=== PATIENT | female | born 1995 | race Caucasian/White ===

== ENCOUNTER → 2020-07-18 10:24 | Outpatient (BNVA) | payer BC, SELFPAY | PROVIDERS: PCP Hospitalist; Referring Provider Hospitalist; Visit Provider Advanced Practice Midwife | DX: Z76.89 Persons encountering health services in other specified circumstances (principal) ==

== ENCOUNTER 2020-10-07 06:28 | Outpatient (REF) | payer BC, SELFPAY | END 2020-10-07 06:29 | disposition home or self-care (01) | LOC: HO.LAB 06:28 | PROVIDERS: Visit Provider Internal Medicine | DX: Z20.828 Contact with and (suspected) exposure to other viral communicable diseases (principal) | CPT/HCPCS: C9803; U0003 ==

== ENCOUNTER 2021-07-04 07:58 | Outpatient (REF) | payer BC, SELFPAY | END 2021-07-04 07:59 | disposition home or self-care (01) | LOC: HO.LAB 07:58 | PROVIDERS: PCP Hospitalist; Visit Provider Advanced Practice Midwife | DX: Z01.419 Encounter for gynecological examination (general) (routine) without abnormal findings (principal) | CPT/HCPCS: 88142 ==

== ENCOUNTER 2021-11-06 15:04 | Outpatient (REF) | payer BC, SELFPAY ==
[2021-11-07 13:08] LABS: CT PCR NOT DETECTED (Not Detect.); NG PCR NOT DETECTED (Not Detect.)
[2021-11-08 10:57] LABS: BV Int Neg Control Negative (Negative); BV Int Pos Control Positive (Positive)
== END 2021-11-06 15:05 | disposition home or self-care (01) ==
LOC: HO.LAB 15:04
PROVIDERS: Visit Provider Advanced Practice Midwife
DX: Z30.09 Encounter for other general counseling and advice on contraception (principal); B37.3 Candidiasis of vulva and vagina; Z20.2 Contact with and (suspected) exposure to infections with a predominantly sexual mode of transmission; N89.8 Other specified noninflammatory disorders of vagina
CPT/HCPCS: 87480; 87491; 87510; 87591; 87660

== ENCOUNTER 2021-12-04 08:59 | Outpatient (REF) | payer BC, SELFPAY ==
[2021-12-04 10:52] LABS: Hematocrit 38.2 % (37.0-47.0); Hemoglobin 12.7 g/dl (12.0-16.0); Mean Corpuscular HGB Conc 33.2 g/dl (31.0-35.0); Mean Corpuscular Hemoglobin 30.7 pg (27.0-33.0); Mean Corpuscular Volume 92.3 fL (80.0-98.0); Mean Platelet Volume 12.1 fL (9.4-12.3); Platelet Count 260 X10*3/uL (160-400); Red Blood Count 4.14 X10*6/uL (4.20-5.50); Red Cell Distribution Width 12.4 % (11.0-16.0); White Blood Count 6.9 X10*3/uL (4.8-10.8)
[2021-12-04 11:09] LABS: Alanine Aminotransferase 9 U/L (0-31); Albumin Level 4.3 g/dL (3.5-5.0); Alkaline Phosphatase 75 U/L (39-117); Anion Gap 9 (12-20); Aspartate Amino Transferase 16 U/L (5-31); Bilirubin Total 0.5 mg/dL (0.0-1.0); Blood Urea Nitrogen 10 mg/dL (9-16); Calcium 9.8 mg/dL (8.4-10.2); Carbon Dioxide 27 mmol/L (22-29); Chloride 107 mmol/L (96-108); Cholesterol 193 mg/dL; Estimated Glomerular Filt Rate > 60; Glucose Fasting 93 mg/dL (60-99); HDL Cholesterol 47 mg/dL; LDL Cholesterol Calculated 129 mg/dl; Potassium 4.7 mmol/L (3.3-5.1); Sodium 138 mmol/L (135-145); Triglycerides 88 mg/dL
[2021-12-04 11:28] LABS: TSH reflex Free T4 1.46 uIU/mL (0.32-4.0)
== END 2021-12-04 09:00 | disposition home or self-care (01) ==
LOC: HO.WFDLDS 08:59
PROVIDERS: Visit Provider Hospitalist
DX: Z00.00 Encounter for general adult medical examination without abnormal findings (principal)
CPT/HCPCS: 36415; 80053; 80061; 84443; 85027

== ENCOUNTER → 2021-12-15 15:22 | Outpatient (BNVA) | payer BC, SELFPAY | PROVIDERS: PCP Hospitalist; Visit Provider Advanced Practice Midwife ==

== ENCOUNTER 2022-01-13 13:03 | Outpatient (REF) | payer BC, SELFPAY ==
[2022-01-14 09:48] LABS: BV Int Neg Control Negative (Negative); BV Int Pos Control Positive (Positive)
== END 2022-01-13 13:04 | disposition home or self-care (01) ==
LOC: HO.LAB 13:03
PROVIDERS: PCP Hospitalist; Visit Provider Advanced Practice Midwife
DX: R10.2 Pelvic and perineal pain (principal); B37.3 Candidiasis of vulva and vagina
CPT/HCPCS: 87480; 87510; 87660

== ENCOUNTER 2022-07-13 16:16 | Outpatient (REF) | payer BC, SELFPAY ==
--- NOTE | ~2022-07-13 | US_ITS ---
EXAMINATION: US PELVIS CLINICAL INFORMATION: Pelvic fullness. COMPARISON: Previous pelvic ultrasound June 2020. TECHNIQUE: Ultrasound of the pelvis is performed using both transabdominal and transvaginal transducers along with Doppler. Transvaginal imaging is performed due to inadequate visualization transabdominally. FINDINGS: The uterus is anteverted and measures 8.2 x 3.3 x 4.2 cm in dimension. No focal uterine lesion is seen. Endometrial thickness is normal measuring 0.4 cm. There is a small nabothian cyst measuring 5 mm. There is posterior crescent-shaped fluid in posterior wall of the cervix. This measures 4 x 1 x 3 cm in transverse AP and longitudinal dimension. This appears increased from 2019 exam. Differential would include loculated fluid collection posterior to the cervix in the posterior cul-de-sac. The ovaries are normal. The right ovary measures 2.6 x 2.1 x 1.6 cm. The left ovary measures 2.6 x 2.3 x 1.8 cm. There is a small amount of fluid in the pelvis. US/US pelvic and transvaginal IMPRESSION: Normal-appearing uterus and ovaries. [place]-shaped fluid collection probably in the posterior wall of the cervix as opposed to loculated fluid collection posterior to/outside the cervix. There is also a small nabothian cyst in the cervix.
== END 2022-07-13 16:17 | disposition home or self-care (01) ==
LOC: HO.US 16:16
PROVIDERS: Visit Provider Advanced Practice Midwife
DX: R19.00 Intra-abdominal and pelvic swelling, mass and lump, unspecified site (principal); N72 Inflammatory disease of cervix uteri
CPT/HCPCS: 76830; 76856